=== PATIENT | male | born 1955 | race Caucasian/White ===

== ENCOUNTER → 2022-07-25 14:38 | Outpatient (CLI) | payer OTHER, SELFPAY ==
[2022-07-25 15:21] LABS: BUN Creatinine Ratio 14.9 (6-22); Blood Urea Nitrogen 17 mg/dL (9-20); Calcium 8.9 mg/dL (8.4-10.2); Carbon Dioxide 27 mmol/L (22-32); Chloride 101 mmol/L (98-107); Estimated Glomerular Filt Rate > 60 mL/min (>60); Glucose 90 mg/dL (80-110); HEMOLYSIS < 15 (0-50); Potassium 4.2 mmol/L (3.4-5.1); Sodium 135 mmol/L (137-145)
== END ==
PROVIDERS: Referring Provider Urology; Visit Provider Urology
DX: R31.21 Asymptomatic microscopic hematuria (principal); Z87.891 Personal history of nicotine dependence
CPT/HCPCS: 36415; 80048

== ENCOUNTER → 2022-07-26 14:46 | Outpatient (CLI) | payer OTHER, SELFPAY ==
--- NOTE | 2022-07-26 | DI.CT.S_ITS ---
PROCEDURE: CT IVP A/P W/WO INDICATIONS: Asymptomatic microscopic hematuria TECHNIQUE: Optional 5 mm thick noncontrast images acquired from the diaphragm to the symphysis pubis. After the administration of intravenous contrast, 5 mm thick images acquired from the diaphragm to the symphysis pubis after a 10-minute delay. 2 mm thick coronal and sagittal reformats were then performed of the kidneys and ureters. For radiation dose reduction, the following was used: automated exposure control, adjustment of mA and/or kV according to patient size. COMPARISON: None. FINDINGS: Image quality: Excellent. Lung bases: Lung bases are clear. Heart size is normal. Urinary system: Both kidneys are normal in size, without hydronephrosis or nephrolithiasis on pre-contrast images. No perinephric fat stranding. There is normal bilateral renal enhancement. Renal calyces appear normal in morphology when filled with contrast. Opacified portions of both ureters demonstrate normal caliber. Bladder wall thickness is normal. No calcified bladder stones. Other solid organs: Liver is normal in size and enhancement. Gallbladder is unremarkable . Biliary system is non dilated. Pancreas enhances normally. Spleen is normal in size and enhancement. No adrenal nodules. Peritoneum and bowel: Bowel loops demonstrate normal wall thickness and caliber. No free fluid or air. Fecal debris within the small-bowel, usually indicating small intestinal bacterial overgrowth versus slow transit. Nodes and vessels: No retroperitoneal or mesenteric adenopathy by size criteria. Aorta and inferior vena cava are normal in size. Abdominal wall: No ventral hernias. Pelvis: No pathologic free pelvic fluid. No inguinal hernias or adenopathy. Bones: No suspicious bony lesions. No vertebral body compression fractures. IMPRESSION: No renal stones or filling defects within the opacified renal collecting system. Dictated by: True Stephenson M.D. on 07/26/2022 at 16:19 Approved by: True Stephenson M.D. on 07/26/2022 at 16:22
== END ==
PROVIDERS: Referring Provider Urology; Visit Provider Urology
DX: R31.21 Asymptomatic microscopic hematuria (principal)
CPT/HCPCS: 74178; Q9967

== ENCOUNTER → 2022-08-07 08:41 | Outpatient (CLI) | payer OTHER, SELFPAY ==
--- NOTE | 2022-08-07 08:44 | DI.MRI.S_ITS ---
PROCEDURE: MR PELVIS WO/W CON INDICATIONS: ELEVATED AND RISING PSA TECHNIQUE: Coronal HASTE, axial T1 FSE with fat saturation, 3-plane nonbreath-hold T2 FSE. After the administration of contrast, dynamic axial, delayed axial and coronal VIBE or 2-D FLASH with fat saturation through the pelvis. Optional diffusion weighted imaging and ADC may be performed. COMPARISON: [facility], CT, CT IVP A/P W/WO, 07/26/2022, 14:48. FINDINGS: Image quality: Suboptimal due to artifact from rectal gas and stool and motion artifact. Prostate: Gland size is 4.6 x 2.9 x 4.4 cm; ellipsoid gland volume is 31 mL. Lesion #1: Size: 0.4 cm Location: Left anterior peripheral zone, mid gland (for example ADC series 25, image 13). T2 signal: Heterogeneous signal intensity DWI/ADC signal: Hypointense on ADC images with corresponding DWI hyperintensity DCE: Negative STACY: Possible STACY laterally (coronal series 6, image 10) Seminal vesicle invasion: Absent PI-RADS: T2 signal - 3; ADC - 3; DCE - negative; Overall score: PI-RADS 3. Genitourinary system: Bladder wall thickness is normal. Distal ureters are non distended. Bowel and peritoneum: No pathologic free pelvic fluid. Inferior colon and small bowel loops are normal in caliber. Colonic diverticulosis is present Nodes and vessels: No pelvic or inguinal adenopathy by size criteria. Iliac vessels are normal in caliber. Bones: Marrow demonstrates normal overall signal, without lesions to suggest metastases. IMPRESSION: 1. A 0.4 cm lesion at the left anterior peripheral zone, mid gland, is consistent with PI-RADS category 3. 2. No suspicious lymph nodes visualized in the imaged pelvis. Dictated by: Branden Lan M.D. on 08/08/2022 at 8:10 Approved by: Branden Lan M.D. on 08/08/2022 at 9:09
== END ==
PROVIDERS: Referring Provider Urology; Visit Provider Urology
DX: N42.9 Disorder of prostate, unspecified (principal); R97.20 Elevated prostate specific antigen [PSA]
CPT/HCPCS: 72197; A9579

== ENCOUNTER → 2022-11-17 15:04 | Outpatient (CLI) | payer OTHER, SELFPAY ==
[2022-11-20 06:46] LABS: PSA Free % 21.9 % (.); PSA, Total 2.1 ng/mL (0.0-4.0)
== END ==
PROVIDERS: PCP Internal Medicine; Referring Provider Urology; Visit Provider Urology
DX: R97.20 Elevated prostate specific antigen [PSA] (principal)
CPT/HCPCS: 36415; 84153; 84154

== ENCOUNTER → 2023-03-04 11:34 | Outpatient (CLI) | payer OTHER, SELFPAY ==
[2023-03-07 10:02] LABS: PSA Free % 25.4 % (.); PSA, Total 2.4 ng/mL (0.0-4.0)
== END ==
PROVIDERS: PCP Internal Medicine; Referring Provider Urology; Visit Provider Urology
DX: R97.20 Elevated prostate specific antigen [PSA] (principal)
CPT/HCPCS: 36415; 84153; 84154

== ENCOUNTER → 2023-09-11 14:19 | Outpatient (CLI) | payer OTHER, SELFPAY ==
[2023-09-11 15:48] LABS: Prostate Specific Antigen 3.74 ng/mL (0.10-4.00)
== END ==
PROVIDERS: PCP Internal Medicine; Referring Provider Urology; Visit Provider Urology
DX: R97.20 Elevated prostate specific antigen [PSA] (principal)
CPT/HCPCS: 36415; 84153

== ENCOUNTER → 2023-10-19 14:10 | Outpatient (CLI) | payer OTHER, SELFPAY | PROVIDERS: PCP Internal Medicine; Referring Provider Urology; Visit Provider Urology | DX: R97.20 Elevated prostate specific antigen [PSA] (principal) | CPT/HCPCS: 36415; 84153; 84154 ==

== ENCOUNTER → 2024-01-18 13:33 | Outpatient (CLI) | payer OTHER, SELFPAY | PROVIDERS: PCP Internal Medicine; Referring Provider Urology; Visit Provider Urology | DX: R97.20 Elevated prostate specific antigen [PSA] (principal) | CPT/HCPCS: 36415; 84153; 84154 ==

== ENCOUNTER → 2024-07-25 14:26 | Outpatient (CLI) | payer OTHER, SELFPAY | LOC: LAB 14:27 | PROVIDERS: PCP Internal Medicine; Referring Provider Urology; Visit Provider Urology | DX: R97.20 Elevated prostate specific antigen [PSA] (principal) | CPT/HCPCS: 36415; 84153; 84154 ==

== ENCOUNTER → 2024-11-07 12:33 | Outpatient (CLI) | payer OTHER, SELFPAY ==
--- NOTE | 2024-11-07 12:34 | DI.US.S_ITS ---
PROCEDURE: US ABD AORTA ANEURYSM SCREEN INDICATIONS: screening AAA TECHNIQUE: Real time scanning was performed of the aorta and iliac arteries, with image documentation. Fourteen images COMPARISON: None. FINDINGS: Aorta: Proximal aortic diameter measures 1.9 cm. Mid-aorta measures 1.7 cm. Distal aortic diameter is 1.6 cm. Iliac arteries: Right common iliac artery measures 1.0 cm. Left common iliac artery measures 1.0 cm. IMPRESSION: No ultrasound evidence of abdominal aortic aneurysm. Dictated by: Rolando Benton M.D. on 11/07/2024 at 22:48 Approved by: Rolando Benton M.D. on 11/07/2024 at 22:49
== END ==
PROVIDERS: PCP Internal Medicine; Referring Provider Physician Assistant; Visit Provider Physician Assistant
DX: Z13.6 Encounter for screening for cardiovascular disorders (principal)
CPT/HCPCS: 76706